=== PATIENT | male | born 1995 | race Two or more races ===

== ENCOUNTER 2017-07-02 15:27 | Emergency (ER) | payer OTHER ==
[~2017-07-02] VITALS: Ht 177.8 cm; Wt 99.8 kg
[2017-07-02] MEDS ORDERED: MEPERIDINE HCL (50 MG/ML) 1 ML VIAL ONE (15:44)
[2017-07-02 15:48] VITALS: BP 135/77
[2017-07-02] MEDS ORDERED: MEPERIDINE HCL (50 MG/ML) 1 ML VIAL IV ONE ×2 (16:15→16:30)
== END 2017-07-02 16:53 | disposition home or self-care (01) ==
LOC: ER 15:36
DX: S83.004A Unspecified dislocation of right patella, initial encounter (principal); W01.0XXA Fall on same level from slipping, tripping and stumbling without subsequent striking against object, initial encounter; Y93.89 Activity, other specified; Y92.89 Other specified places as the place of occurrence of the external cause; Y99.8 Other external cause status
CPT/HCPCS: 27560; 73560; 96374; 99285; J2175; J7030